=== PATIENT | male | born 1935 ===

== ENCOUNTER 2019-10-09 08:16 | Outpatient (CLI) | payer OTHER | END 2019-10-09 10:21 | disposition home or self-care (01) | LOC: MRI 08:16 | PROVIDERS: ATTEND Neurological Surgery | DX: M96.1 Postlaminectomy syndrome, not elsewhere classified (principal); M54.5 Low back pain | CPT/HCPCS: 72148 ==

== ENCOUNTER 2022-11-26 06:10 | Day surgery (SDC) | payer OTHER | END 2022-11-26 08:35 | disposition home or self-care (01) | LOC: AMB-ENDOS 06:10 | PROVIDERS: ATTEND Surgery | DX: K57.30 Diverticulosis of large intestine without perforation or abscess without bleeding (principal); K64.1 Second degree hemorrhoids; L29.0 Pruritus ani; Z20.822 Contact with and (suspected) exposure to COVID-19 ==